=== PATIENT | male | born 1985 | race African-American/Black ===

== ENCOUNTER 2025-07-17 23:52 | Emergency (ER) | payer OTHER ==
[~2025-07-17] VITALS: Ht 177.8 cm; Wt 107.0 kg
[2025-07-18 00:07] VITALS: TEMP 37.1; O2SAT 98
[2025-07-18] MEDS: TETRACAINE 0.5% OPHTH DROPS 4ML BOTHEYE ONE (01:09)
[2025-07-18] MEDS: FLUORESCEIN SODIUM 1MG/STRIP BOTHEYE ONE (01:10)
[2025-07-18] MEDS ORDERED: ERYT1OIN6 EACHEYE (01:19)
[2025-07-18 01:42] VITALS: BP 138/89; PULSE 81; RESP 18; O2SAT 98
== END 2025-07-18 01:48 | disposition home or self-care (01) ==
LOC: ER 07-18 00:08
DX: T15.91XA Foreign body on external eye, part unspecified, right eye, initial encounter (principal); T15.92XA Foreign body on external eye, part unspecified, left eye, initial encounter; H57.89 Other specified disorders of eye and adnexa; X58.XXXA Exposure to other specified factors, initial encounter; Y93.89 Activity, other specified; Y92.89 Other specified places as the place of occurrence of the external cause; Y99.8 Other external cause status
CPT/HCPCS: 99283